=== PATIENT | male | born 1955 | race Caucasian/White ===

== ENCOUNTER 2018-07-17 09:35 | Inpatient (IN) | payer OTHER ==
--- NOTE | 2018-07-17 11:44 | HP ---
Admission [facility] Chief Complaint: REHAB FOR ALCOHOL ADDICTION Allergies/Adverse Reactions: Allergies Allergy/AdvReac Type Severity Reaction Status Date / Time No Known Allergies Allergy Verified 07/17/18 10:42 History of Present Illness: 62 Y/O MALE WITH A HX OF ALCOHOL DEPENDENCE SEEKING DETOX TX. PT REPORTS HE WAS AT [facility] FOR 10 DAYS DUE TO COLITIS FROM TO 07/17/18(SEE COPY OF DISCHARGE PAPERS PLACED IN PT'S CHART). PT HAS A HX OF COLITIS, EMPHYSEMA AND CHRONIC PANCREATITIS WITH PANCREATIC DUCTAL STENT(NO BILIARY STENT-PER RECORD). PT REPORTS HE HAS A PRIMARY CARE DOCTOR: DR DORENE Kaufman [address] [address] PT HAS A FOLLOW UP APPOINTMENT POST HOSPITALIZATION WITH THIS PMD ON BUT STATES HE CAN ALWAYS RESCHEDULE IT AFTER REHAB. Exam Limitations: No Limitations - Ebola screening Have you traveled outside of the country in the last 21 days: No Have you had contact with anyone from an Ebola affected area: No Have you been sick,other than usual withdrawal symptoms: No Do you have a fever: No - Review of Systems Constitutional: Chills, Loss of Appetite, Night Sweats, Unintentional Wgt. Loss EENT: reports: Blurred Vision, Tearing, Nose Congestion, Dental Problems ( MISSING TEETH--"I LOST MY DENTURES".) Respiratory: reports: Shortness of Breath (HX EMPHYSEMA), Wheezing Cardiac: reports: Lightheadedness, Syncope GI: reports: Diarrhea, Nausea, Poor Appetite, Poor Fluid Intake, Vomiting : reports: No Symptoms Reported Musculoskeletal: reports: No Symptoms Reported Integumentary: reports: No Symptoms Reported Neuro: reports: Tremors Endocrine: reports: No Symptoms Reported Hematology: reports: No Symptoms Reported Psychiatric: reports: Orientated x3, Anxious, Depressed Other Systems: Reviewed and Negative Patient History - Patient Medical History Hx Anemia: No Hx Asthma: No Hx Chronic Obstructive Pulmonary Disease (COPD): Yes (MDI) Hx Cancer: No Hx Cardiac Disorders: No Hx Congestive Heart Failure: No Hx Hypertension: Yes (ON AMLODIPINE 5 MG PO DAILY) Hx Hypercholesterolemia: No Hx Pacemaker: No HX Cerebrovascular Accident: No Hx Seizures: No Hx Dementia: No Hx Diabetes: Yes (BORDERLINE DM-NO CURRENT MED) Hx Gastrointestinal Disorders: Yes (HX COLITIS) Hx Liver Disease: Yes (liver scarring from hep c and alcohol) Hx Genitourinary Disorders: No Hx Sexually Transmitted Disorders: Yes (GONORHEA 30YRS AGO) Hx Renal Disease (ESRD): No Hx Thyroid Disease: No Hx Human Immunodeficiency Virus (HIV): No (NEAGTIVE HX ) Hx Hepatitis C: Yes (TREATED 2010-UNDETECTABLE) Hx Depression: Yes Hx Suicide Attempt: No (DENIES S/I) Hx Bipolar Disorder: No Hx Schizophrenia: No - Patient Surgical History Past Surgical History: Yes Hx Neurologic Surgery: No Hx Cataract Extraction: No Hx Cardiac Surgery: No Hx Lung Surgery: No Hx Breast Surgery: No Hx Breast Biopsy: No Hx Abdominal Surgery: No Hx Appendectomy: No Hx Cholecystectomy: No Hx Genitourinary Surgery: No Hx Section: No Hx Orthopedic Surgery: Yes (FX AND REPAIR OF RIGHT WRIST/FOREARM IN 2007) Other Surgical History: Varicose vein stripping in b/l legs Anesthesia Reaction: No - PPD History Previous Implant?: Yes Documented Results: Negative w/proof Implanted On Prior [facility] Admission?: Yes Date: 10/30/14 Results: 0MM PPD to be Administered?: Yes - Reproductive History Patient is a Female of Child Bearing Age (11 -55 yrs old): No (MALE) - Smoking Cessation Smoking history: Current every day smoker Have you smoked in the past 12 months: Yes Aproximately how many cigarettes per day: 4 Hx Chewing Tobacco Use: No Initiated information on smoking cessation: Yes 'Breaking Loose' booklet given: 07/17/18 - Substance & Tx. History Hx Alcohol Use: Yes (VODKA) Substance Use Type: Alcohol Hx Substance Use Treatment: Yes - Substances Abused Alcohol Route: Oral Frequency: Daily Amount used: vodka- 1 qrt / 4 24oz cans Age of first use: 12 Date of Last Use: 07/17/18 Family Disease History - Family Disease History Family History: Denies Admission Physical Exam BHS - Vital Signs Vital Signs: Vital Signs - 24 hr 07/17/18 10:09 Temperature 97.5 F L Pulse Rate 100 H Respiratory 18 Rate Blood Pressure 135/95 - Physical General Appearance: Yes: No Apparent Distress, Thin, Anxious HEENTM: Yes: EOMI, Normocephalic, JOHNNA, Pharynx Normal Respiratory: Yes: Chest Non-Tender, Lungs Clear, Normal Breath Sounds, No Respiratory Distress Neck: Yes: Supple, Trachea in good position Breast: Yes: Breast Exam Deferred Cardiology: Yes: Regular Rhythm, Regular Rate, S1, S2 Abdominal: Yes: Normal Bowel Sounds, Non Tender, Flat, Soft Genitourinary: Yes: Other (N/C) Back: Yes: Within Normal Limits Musculoskeletal: Yes: full range of Motion, Gait Steady Extremities: Yes: Normal Range of Motion, Non-Tender Neurological: Yes: grubber II-XII NML intact, Fully Oriented, Alert, Motor Strength 5/5 Integumentary: Yes: Dry, Warm, Other (VARICOSE VEINS BOTH LEGS--RIGHT > RIGHT) Lymphatic: Yes: Within Normal Limits - Diagnostic (1) Alcohol dependence with uncomplicated withdrawal Current Visit: Yes Status: Acute (2) Nicotine dependence Current Visit: Yes Status: Acute Qualifiers: Nicotine product type: cigarettes Substance use status: in withdrawal Qualified Code(s): F17.213 - Nicotine dependence, cigarettes, with withdrawal (3) Hepatitis C Current Visit: Yes Status: Resolved (4) Hx of coronary artery disease Current Visit: Yes Status: Chronic (5) Hx of chronic pancreatitis Current Visit: Yes Status: Chronic (6) History of COPD Current Visit: Yes Status: Chronic Cleared for Admission [facility] - Detox or Rehab Claeared for Rehab Admission: Yes [facility] Breath Alcohol Content Breath Alcohol Content: 0.051 Urine Drug Screen - Results Drug Screen Negative: No Urine Drug Screen Results: BZO-Benzodiazepines Inpatient Rehab Admission - Initial Determination Are CD services needed?: Yes Free of communicable disease: Yes Not in need of hospitalization: Yes - Rehab Admission Criteria Patient is meeting Inpatient Rehab admission criteria:: Yes
[2018-07-17] MEDS ORDERED: MAGNESIUM HYDROX 2400MG/30ML ORAL SUSPENSION 30 ML CUP PO PRN (13:26)
[2018-07-17] MEDS ORDERED: MAGNESIUM CITRATE 300 ML BOTTLE PO PRN (13:26)
[2018-07-17] MEDS ORDERED: hydrOXYzine PAMOATE 25 MG CAPSULE (FP) PO PRN (13:26)
[2018-07-17] MEDS ORDERED: MENTHOL/PHENOL 1 EACH UD MM PRN (13:26)
[2018-07-17] MEDS ORDERED: P-EPHED 60MG/TRIPROLIDI 2.5MG TABLET PO PRN (13:26)
[2018-07-17] MEDS ORDERED: ACETAMINOPHEN 325 MG TABLET (FP) PO PRN (13:26)
[2018-07-17] MEDS ORDERED: LOPERAMIDE HCL 2 MG CAPSULE PO PRN (13:26)
[2018-07-17] MEDS ORDERED: IBUPROFEN 400 MG TABLET (FP) PO PRN (13:26)
[2018-07-17] MEDS ORDERED: guaiFENesin/D-METHORPHAN HB 10 ML UNIT-DOSE CUPS PO PRN (13:26)
[2018-07-17] MEDS ORDERED: MAG HYDROX/AL HYDROX/SIMETH 30 ML UNIT-DOSE CUP PO PRN (13:26)
[2018-07-17] MEDS ORDERED: ALBUTEROL SO4 8 GM HFA INHALER IH PRN (13:28)
[2018-07-17 14:46] LABS: HEMATOCRIT 36.7 % (35.4-49); HEMOGLOBIN 12.2 GM/dL (11.7-16.9); MCH 33.3 pg (25.7-33.7); MCHC 33.2 g/dl (32.0-35.9); MEAN CELL VOLUME 100.2 fl (80-96); MEAN PLT VOLUME 7.6 fl (7.5-11.1); PLATELET COUNT 516 K/MM3 (134-434); RBC 3.67 M/mm3 (4.00-5.60); RDW 14.1 % (11.9-15.9); WHITE BLOOD COUNT 6.3 K/mm3 (4.0-10.0)
[2018-07-17 14:56] LABS: ALBUMIN 3.9 g/dl (3.4-5.0); ALK PHOS 103 U/L (45-117); ANION GAP 5 MMOL/L (8-16); BLOOD UREA NITROGEN 14 mg/dL (7-18); CALCIUM 9.3 mg/dL (8.5-10.1); CHLORIDE 102 mmol/L (98-107); CO2 29 mmol/L (21-32); GLUCOSE,RANDOM 149 mg/dL (74-106); POTASSIUM 4.6 mmol/L (3.5-5.1); SGOT/AST 23 U/L (15-37); SGPT/ALT 43 U/L (12-78); SODIUM 136 mmol/L (136-145)
[2018-07-17 14:57] LABS: BILIRUBIN,TOTAL 0.2 mg/dL (0.2-1.0)
[2018-07-17] MEDS: amLODIPine BESYLATE 5 MG TABLET (FP) PO SCH (15:16)
--- NOTE | 2018-07-17 16:10 | PN ---
[facility] Progress Note Note: Vital Signs Temperature 97.5 F L 07/17/18 10:09 Pulse Rate 100 H 07/17/18 10:09 Respiratory Rate 18 07/17/18 10:09 Blood Pressure 135/95 07/17/18 10:09 O2 Sat by Pulse Oximetry (%) Laboratory Last Values WBC 6.3 K/mm3 (4.0-10.0) 07/17/18 13:10 RBC 3.67 M/mm3 (4.00-5.60) L 07/17/18 13:10 Hgb 12.2 GM/dL (11.7-16.9) 07/17/18 13:10 Hct 36.7 % (35.4-49) 07/17/18 13:10 MCV 100.2 fl (80-96) H 07/17/18 13:10 MCH 33.3 pg (25.7-33.7) 07/17/18 13:10 MCHC 33.2 g/dl (32.0-35.9) 07/17/18 13:10 RDW 14.1 % (11.9-15.9) 07/17/18 13:10 Plt Count 516 K/MM3 (134-434) H D 07/17/18 13:10 MPV 7.6 fl (7.5-11.1) D 07/17/18 13:10 Sodium 136 mmol/L (136-145) 07/17/18 13:10 Potassium 4.6 mmol/L (3.5-5.1) 07/17/18 13:10 Chloride 102 mmol/L (98-107) 07/17/18 13:10 Carbon Dioxide 29 mmol/L (21-32) 07/17/18 13:10 Anion Gap 5 MMOL/L (8-16) L 07/17/18 13:10 BUN 14 mg/dL (7-18) 07/17/18 13:10 Creatinine 1.0 mg/dL (0.7-1.3) 07/17/18 13:10 Creat Clearance w eGFR > 60 (>60) 07/17/18 13:10 POC Glucometer 165 UNITS (80-120) 07/17/18 11:37 Random Glucose 149 mg/dL (74-106) H 07/17/18 13:10 Calcium 9.3 mg/dL (8.5-10.1) 07/17/18 13:10 Total Bilirubin 0.2 mg/dL (0.2-1.0) 07/17/18 13:10 AST 23 U/L (15-37) D 07/17/18 13:10 ALT 43 U/L (12-78) D 07/17/18 13:10 Alkaline Phosphatase 103 U/L (45-117) 07/17/18 13:10 Total Protein 8.0 g/dl (6.4-8.2) 07/17/18 13:10 Albumin 3.9 g/dl (3.4-5.0) 07/17/18 13:10 Patient currently stable. repeat CBC in AM
[2018-07-17] MEDS: LIPASE/PROTEASE/AMYLASE 6,000 UNIT CAPSULE PO SCH (16:47)
[2018-07-17] MEDS: RIVAROXABAN 20 MG TABLET PO SCH (17:01)
[2018-07-17 17:43] LABS: URINE APPEARANCE CLEAR; URINE BILIRUBIN NEGATIVE (<2.0 mg/dL); URINE COLOR STRAW; URINE GLUCOSE (UA) NEGATIVE (NEGATIVE); URINE KETONE NEGATIVE (NEGATIVE); URINE LEUK ESTERASE NEGATIVE (NEGATIVE); URINE NITRITE NEGATIVE (NEGATIVE); URINE PROTEIN NEGATIVE (NEGATIVE); URINE UROBILINOGEN NEGATIVE mg/dL (0.2-1.0)
[2018-07-17] MEDS: THIAMINE HCL 100 MG TABLET (FP) PO SCH (21:34)
[2018-07-17] MEDS: MELATONIN 5 MG TABLETS PO PRN (21:34)
[2018-07-18] MEDS: LIPASE/PROTEASE/AMYLASE 6,000 UNIT CAPSULE PO SCH ×3 (07:41→17:25)
[2018-07-18] MEDS: PRENATAL VITAMINS W/ FOLIC ACID TABLET (FP) PO SCH (09:29)
[2018-07-18] MEDS: amLODIPine BESYLATE 5 MG TABLET (FP) PO SCH (09:29)
[2018-07-18 10:23] LABS: BASO % 2.4 % (0-2.0); EOS % 1.4 % (0-4.5); HEMATOCRIT 36.2 % (35.4-49); HEMOGLOBIN 11.9 GM/dL (11.7-16.9); LYMPH % 38.3 % (8-40); MCH 33.4 pg (25.7-33.7); MCHC 32.8 g/dl (32.0-35.9); MEAN CELL VOLUME 101.7 fl (80-96); MEAN PLT VOLUME 7.4 fl (7.5-11.1); MONO % 16.7 % (3.8-10.2); NEUT % 41.2 % (42.8-82.8); PLATELET COUNT 477 K/MM3 (134-434); RBC 3.56 M/mm3 (4.00-5.60); RDW 14.2 % (11.9-15.9); WHITE BLOOD COUNT 7.1 K/mm3 (4.0-10.0)
[2018-07-18] MEDS ORDERED: PT OWN MED DRAWER 7, Y5N ONE ×3 (12:09→16:25)
[2018-07-18 13:42] LABS: ANISOCYTOSIS 1+; MACROCYTOSIS 1+; PLATELET ESTIMATE NORMAL
[2018-07-18] MEDS: RIVAROXABAN 20 MG TABLET PO SCH (17:24)
[2018-07-18] MEDS: THIAMINE HCL 100 MG TABLET (FP) PO SCH (21:02)
[2018-07-18] MEDS: MELATONIN 5 MG TABLETS PO PRN (21:02)
[2018-07-19] MEDS: LIPASE/PROTEASE/AMYLASE 6,000 UNIT CAPSULE PO SCH ×3 (07:19→17:31)
--- NOTE | 2018-07-19 09:21 | HP ---
Psychiatrist Admission - Data Date of interview: 07/19/18 Admission source: [facility] Identifying data: Patient is a 62 year old male, , father of one, unemployed, homeless, supported by a monthly pension check and food stamps. This is patient's second admission to rehab at [facility]. Pt. admitted 3W for alcohol dependence. Medical History: hypertension, diabetes, liver scarring from hep c and alcohol, Varicose vein stripping in b/l legs, COPD, FX AND REPAIR OF RIGHT WRIST/FOREARM IN 2007 Psychiatric History: Patient denies h/o psychiatric hospitalization and suicide attempt. Patient's first psychiatric contact was in 2008 for depression after receiving chemotherapy. He was tried on seroquel, buspar, lexapro, trazodone, ambien, and mirtzapine. Pt. d/c medications after chemotherapy was discontinued and has not taken psychtrophic medications since. Pt reports anxiety,depression , and insomnia due to his situation (pt is homeless and does not receive enough financial support). Pt. became homeless after his 10 years ago. Pt. denies h/o auditory and hallucinations. As per chart patient was treated effectively with doxepin 50mg qhs + Seroquel 25 daily + seroquel 100mg qhs during his previous admission in rehab in 2014 but reports not accepting psychotrophic medications following discharge. Pt. denies suicidal and homicidal ideation. Physical/Sexual Abuse/Trauma History: denies. Vital Signs: Vital Signs - 24 hr 07/19/18 07/19/18 07/19/18 00:30 03:30 06:50 Temperature 98.2 F Pulse Rate 103 H Respiratory 18 18 18 Rate Blood Pressure 138/86 Allergies/Adverse Reactions: Allergies Allergy/AdvReac Type Severity Reaction Status Date / Time No Known Allergies Allergy Verified 07/17/18 10:42 Date of last physical exam: 07/17/18 Concur with the findings of this exam: Yes - Substance Abuse/Tx History Hx Alcohol Use: Yes Hx Substance Use: No Substance Use Type: Alcohol Hx Substance Use Treatment: Yes (Rehab at [facility] in 2014) Mental Status Exam - Mental Status Exam Alert and Oriented to: Time, Place, Person Cognitive Function: Good Patient Appearance: Well Groomed Mood: Sad, Euthymic Affect: Mood Congruent Patient Behavior: Appropriate, Cooperative Speech Pattern: Clear, Appropriate Voice Loudness: Normal Thought Process: Intact, Goal Oriented Thought Disorder: Not Present Hallucinations: Denies Suicidal Ideation: Denies Homicidal Ideation: Denies Insight/Judgement: Poor Sleep: Poorly Appetite: Fair Muscle strength/Tone: Normal Gait/Station: Normal Psychiatric Findings - Problem List ([place] 1, 2,3) (1) Alcohol-induced mood disorder Current Visit: Yes Status: Acute (2) Alcohol dependence Current Visit: Yes Status: Chronic (3) Insomnia Current Visit: Yes Status: Acute - Initial Treatment Plan Initial Treatment Plan: Psychoeducation provided. Rehab in progress. Will start patient on doxepin 25mg qhs. Benefits and side effects discussed. Verbal consent given. Will continue to monitor.
[2018-07-19] MEDS: PRENATAL VITAMINS W/ FOLIC ACID TABLET (FP) PO SCH (09:40)
[2018-07-19] MEDS: amLODIPine BESYLATE 5 MG TABLET (FP) PO SCH (09:40)
[2018-07-19] MEDS ORDERED: PT OWN MED DRAWER 7, Y5N ONE ×2 (11:43→16:26)
[2018-07-19] MEDS: RIVAROXABAN 20 MG TABLET PO SCH (17:31)
[2018-07-19] MEDS: MELATONIN 5 MG TABLETS PO PRN (21:16)
[2018-07-19] MEDS: THIAMINE HCL 100 MG TABLET (FP) PO SCH (21:16)
[2018-07-19] MEDS: DOXEPIN HCL 25 MG CAPSULE PO SCH (21:16)
[2018-07-20] MEDS: LIPASE/PROTEASE/AMYLASE 6,000 UNIT CAPSULE PO SCH ×3 (07:07→16:56)
[2018-07-20] MEDS: PRENATAL VITAMINS W/ FOLIC ACID TABLET (FP) PO SCH (09:28)
[2018-07-20] MEDS: amLODIPine BESYLATE 5 MG TABLET (FP) PO SCH (09:28)
[2018-07-20] MEDS: RIVAROXABAN 20 MG TABLET PO SCH (17:01)
[2018-07-20] MEDS ORDERED: PT OWN MED DRAWER 7, Y5N ONE (19:29)
[2018-07-20] MEDS: DOXEPIN HCL 25 MG CAPSULE PO SCH (21:27)
[2018-07-20] MEDS: THIAMINE HCL 100 MG TABLET (FP) PO SCH (21:27)
[2018-07-21] MEDS: LIPASE/PROTEASE/AMYLASE 6,000 UNIT CAPSULE PO SCH ×3 (07:06→16:59)
[2018-07-21] MEDS: PRENATAL VITAMINS W/ FOLIC ACID TABLET (FP) PO SCH (09:43)
[2018-07-21] MEDS: amLODIPine BESYLATE 5 MG TABLET (FP) PO SCH (09:43)
[2018-07-21] MEDS: RIVAROXABAN 20 MG TABLET PO SCH (17:57)
[2018-07-21] MEDS: DOXEPIN HCL 25 MG CAPSULE PO SCH (21:17)
[2018-07-21] MEDS: THIAMINE HCL 100 MG TABLET (FP) PO SCH (21:17)
[2018-07-22] MEDS: LIPASE/PROTEASE/AMYLASE 6,000 UNIT CAPSULE PO SCH ×3 (07:14→16:53)
[2018-07-22] MEDS: PRENATAL VITAMINS W/ FOLIC ACID TABLET (FP) PO SCH (09:35)
[2018-07-22] MEDS: amLODIPine BESYLATE 5 MG TABLET (FP) PO SCH (09:35)
[2018-07-22] MEDS ORDERED: PT OWN MED DRAWER 7, Y5N ONE ×2 (16:24→19:13)
[2018-07-22] MEDS: RIVAROXABAN 20 MG TABLET PO SCH (17:10)
[2018-07-22] MEDS: DOXEPIN HCL 25 MG CAPSULE PO SCH (21:18)
[2018-07-22] MEDS: MELATONIN 5 MG TABLETS PO PRN (21:18)
[2018-07-22] MEDS: THIAMINE HCL 100 MG TABLET (FP) PO SCH (21:18)
[2018-07-23] MEDS ORDERED: PT OWN MED DRAWER 7, Y5N ONE (06:10)
[2018-07-23] MEDS: LIPASE/PROTEASE/AMYLASE 6,000 UNIT CAPSULE PO SCH ×3 (07:59→17:00)
[2018-07-23] MEDS: amLODIPine BESYLATE 5 MG TABLET (FP) PO SCH (09:41)
[2018-07-23] MEDS: PRENATAL VITAMINS W/ FOLIC ACID TABLET (FP) PO SCH (09:41)
[2018-07-23] MEDS: RIVAROXABAN 20 MG TABLET PO SCH (17:00)
[2018-07-23] MEDS: DOXEPIN HCL 25 MG CAPSULE PO SCH (21:26)
[2018-07-23] MEDS: THIAMINE HCL 100 MG TABLET (FP) PO SCH (21:26)
[2018-07-23] MEDS: MELATONIN 5 MG TABLETS PO PRN (21:26)
[2018-07-24] MEDS: LIPASE/PROTEASE/AMYLASE 6,000 UNIT CAPSULE PO SCH ×3 (07:22→17:33)
[2018-07-24] MEDS: PRENATAL VITAMINS W/ FOLIC ACID TABLET (FP) PO SCH (09:31)
[2018-07-24] MEDS: amLODIPine BESYLATE 5 MG TABLET (FP) PO SCH (09:31)
[2018-07-24] MEDS: NICOTINE 21 MG/24 HOURS TOPICAL PATCH TD SCH (09:32)
[2018-07-24] MEDS: RIVAROXABAN 20 MG TABLET PO SCH (17:33)
[2018-07-24] MEDS ORDERED: PT OWN MED DRAWER 7, Y5N ONE (20:21)
[2018-07-24] MEDS: MELATONIN 5 MG TABLETS PO PRN (21:12)
[2018-07-24] MEDS: DOXEPIN HCL 25 MG CAPSULE PO SCH (21:12)
[2018-07-24] MEDS: THIAMINE HCL 100 MG TABLET (FP) PO SCH (21:12)
[2018-07-25] MEDS: LIPASE/PROTEASE/AMYLASE 6,000 UNIT CAPSULE PO SCH ×3 (07:23→16:44)
[2018-07-25] MEDS: PRENATAL VITAMINS W/ FOLIC ACID TABLET (FP) PO SCH (09:34)
[2018-07-25] MEDS: NICOTINE 21 MG/24 HOURS TOPICAL PATCH TD SCH (09:34)
[2018-07-25] MEDS: amLODIPine BESYLATE 5 MG TABLET (FP) PO SCH (09:34)
[2018-07-25] MEDS: RIVAROXABAN 20 MG TABLET PO SCH (18:00)
[2018-07-25] MEDS: THIAMINE HCL 100 MG TABLET (FP) PO SCH (21:34)
[2018-07-25] MEDS: DOXEPIN HCL 25 MG CAPSULE PO SCH (21:34)
[2018-07-25] MEDS: MELATONIN 5 MG TABLETS PO PRN (21:34)
[2018-07-26] MEDS: LIPASE/PROTEASE/AMYLASE 6,000 UNIT CAPSULE PO SCH ×3 (07:09→16:52)
[2018-07-26] MEDS: PRENATAL VITAMINS W/ FOLIC ACID TABLET (FP) PO SCH (09:51)
[2018-07-26] MEDS: amLODIPine BESYLATE 5 MG TABLET (FP) PO SCH (09:51)
[2018-07-26] MEDS: NICOTINE 21 MG/24 HOURS TOPICAL PATCH TD SCH (09:52)
[2018-07-26] MEDS ORDERED: PT OWN MED DRAWER 7, Y5N ONE (10:41)
[2018-07-26] MEDS: RIVAROXABAN 20 MG TABLET PO SCH (17:05)
[2018-07-26] MEDS: DOXEPIN HCL 25 MG CAPSULE PO SCH (21:46)
[2018-07-26] MEDS: THIAMINE HCL 100 MG TABLET (FP) PO SCH (21:46)
[2018-07-26] MEDS: MELATONIN 5 MG TABLETS PO PRN (21:46)
[2018-07-27] MEDS: LIPASE/PROTEASE/AMYLASE 6,000 UNIT CAPSULE PO SCH ×3 (07:04→16:53)
[2018-07-27] MEDS: PRENATAL VITAMINS W/ FOLIC ACID TABLET (FP) PO SCH (09:34)
[2018-07-27] MEDS: NICOTINE 21 MG/24 HOURS TOPICAL PATCH TD SCH (09:34)
[2018-07-27] MEDS: amLODIPine BESYLATE 5 MG TABLET (FP) PO SCH (09:34)
[2018-07-27] MEDS: RIVAROXABAN 20 MG TABLET PO SCH (17:08)
[2018-07-27] MEDS: DOXEPIN HCL 25 MG CAPSULE PO SCH (21:11)
[2018-07-27] MEDS: THIAMINE HCL 100 MG TABLET (FP) PO SCH (21:11)
[2018-07-27] MEDS: MELATONIN 5 MG TABLETS PO PRN (21:11)
[2018-07-28] MEDS: LIPASE/PROTEASE/AMYLASE 6,000 UNIT CAPSULE PO SCH ×3 (07:10→17:05)
[2018-07-28] MEDS: amLODIPine BESYLATE 5 MG TABLET (FP) PO SCH (09:27)
[2018-07-28] MEDS: PRENATAL VITAMINS W/ FOLIC ACID TABLET (FP) PO SCH (09:27)
[2018-07-28] MEDS: NICOTINE 21 MG/24 HOURS TOPICAL PATCH TD SCH (09:27)
[2018-07-28] MEDS: RIVAROXABAN 20 MG TABLET PO SCH (17:05)
[2018-07-28] MEDS: DOXEPIN HCL 25 MG CAPSULE PO SCH (21:05)
[2018-07-28] MEDS: THIAMINE HCL 100 MG TABLET (FP) PO SCH (21:05)
[2018-07-28] MEDS: MELATONIN 5 MG TABLETS PO PRN (21:05)
[2018-07-29] MEDS: LIPASE/PROTEASE/AMYLASE 6,000 UNIT CAPSULE PO SCH ×3 (07:08→16:56)
[2018-07-29] MEDS: amLODIPine BESYLATE 5 MG TABLET (FP) PO SCH (09:44)
[2018-07-29] MEDS: NICOTINE 21 MG/24 HOURS TOPICAL PATCH TD SCH (09:44)
[2018-07-29] MEDS: PRENATAL VITAMINS W/ FOLIC ACID TABLET (FP) PO SCH (09:44)
[2018-07-29] MEDS: RIVAROXABAN 20 MG TABLET PO SCH (17:56)
[2018-07-29] MEDS: DOXEPIN HCL 25 MG CAPSULE PO SCH (21:44)
[2018-07-29] MEDS: THIAMINE HCL 100 MG TABLET (FP) PO SCH (21:44)
[2018-07-29] MEDS: MELATONIN 5 MG TABLETS PO PRN (21:44)
[2018-07-30] MEDS: LIPASE/PROTEASE/AMYLASE 6,000 UNIT CAPSULE PO SCH ×3 (07:11→16:55)
[2018-07-30] MEDS: NICOTINE 21 MG/24 HOURS TOPICAL PATCH TD SCH (09:43)
[2018-07-30] MEDS: amLODIPine BESYLATE 5 MG TABLET (FP) PO SCH (09:43)
[2018-07-30] MEDS: PRENATAL VITAMINS W/ FOLIC ACID TABLET (FP) PO SCH (09:43)
[2018-07-30] MEDS: RIVAROXABAN 20 MG TABLET PO SCH (17:00)
[2018-07-30] MEDS: DOXEPIN HCL 25 MG CAPSULE PO SCH (21:24)
[2018-07-30] MEDS: MELATONIN 5 MG TABLETS PO PRN (21:24)
[2018-07-30] MEDS: THIAMINE HCL 100 MG TABLET (FP) PO SCH (21:25)
[2018-07-31] MEDS: LIPASE/PROTEASE/AMYLASE 6,000 UNIT CAPSULE PO SCH ×3 (07:07→16:58)
[2018-07-31] MEDS: PRENATAL VITAMINS W/ FOLIC ACID TABLET (FP) PO SCH (09:45)
[2018-07-31] MEDS: amLODIPine BESYLATE 5 MG TABLET (FP) PO SCH (09:45)
[2018-07-31] MEDS: NICOTINE 21 MG/24 HOURS TOPICAL PATCH TD SCH (09:46)
[2018-07-31] MEDS: RIVAROXABAN 20 MG TABLET PO SCH (17:54)
[2018-07-31] MEDS: DOXEPIN HCL 25 MG CAPSULE PO SCH (22:03)
[2018-07-31] MEDS: MELATONIN 5 MG TABLETS PO PRN (22:03)
[2018-07-31] MEDS: THIAMINE HCL 100 MG TABLET (FP) PO SCH (22:03)
[2018-08-01] MEDS: LIPASE/PROTEASE/AMYLASE 6,000 UNIT CAPSULE PO SCH ×3 (07:04→16:53)
[2018-08-01] MEDS: amLODIPine BESYLATE 5 MG TABLET (FP) PO SCH (09:51)
[2018-08-01] MEDS: NICOTINE 21 MG/24 HOURS TOPICAL PATCH TD SCH (09:51)
[2018-08-01] MEDS: PRENATAL VITAMINS W/ FOLIC ACID TABLET (FP) PO SCH (09:51)
[2018-08-01] MEDS ORDERED: PT OWN MED DRAWER 7, Y5N ONE (17:18)
[2018-08-01] MEDS: RIVAROXABAN 20 MG TABLET PO SCH (17:19)
[2018-08-01] MEDS: MELATONIN 5 MG TABLETS PO PRN (21:26)
[2018-08-01] MEDS: THIAMINE HCL 100 MG TABLET (FP) PO SCH (21:26)
[2018-08-01] MEDS: DOXEPIN HCL 25 MG CAPSULE PO SCH (21:26)
[2018-08-02] MEDS: LIPASE/PROTEASE/AMYLASE 6,000 UNIT CAPSULE PO SCH ×3 (07:11→17:10)
[2018-08-02] MEDS: NICOTINE 21 MG/24 HOURS TOPICAL PATCH TD SCH (09:45)
[2018-08-02] MEDS: amLODIPine BESYLATE 5 MG TABLET (FP) PO SCH (09:45)
[2018-08-02] MEDS: PRENATAL VITAMINS W/ FOLIC ACID TABLET (FP) PO SCH (09:45)
[2018-08-02] MEDS: RIVAROXABAN 20 MG TABLET PO SCH (17:10)
[2018-08-02] MEDS: MELATONIN 5 MG TABLETS PO PRN (21:33)
[2018-08-02] MEDS: DOXEPIN HCL 25 MG CAPSULE PO SCH (21:33)
[2018-08-02] MEDS: THIAMINE HCL 100 MG TABLET (FP) PO SCH (21:33)
[2018-08-03] MEDS: LIPASE/PROTEASE/AMYLASE 6,000 UNIT CAPSULE PO SCH ×3 (07:30→16:57)
[2018-08-03] MEDS: amLODIPine BESYLATE 5 MG TABLET (FP) PO SCH (09:44)
[2018-08-03] MEDS: PRENATAL VITAMINS W/ FOLIC ACID TABLET (FP) PO SCH (09:44)
[2018-08-03] MEDS: NICOTINE 21 MG/24 HOURS TOPICAL PATCH TD SCH (09:45)
[2018-08-03] MEDS: RIVAROXABAN 20 MG TABLET PO SCH (18:00)
[2018-08-03] MEDS: THIAMINE HCL 100 MG TABLET (FP) PO SCH (21:13)
[2018-08-03] MEDS: DOXEPIN HCL 25 MG CAPSULE PO SCH (21:13)
[2018-08-03] MEDS: MELATONIN 5 MG TABLETS PO PRN (21:13)
[2018-08-04] MEDS: LIPASE/PROTEASE/AMYLASE 6,000 UNIT CAPSULE PO SCH ×3 (07:12→16:59)
[2018-08-04] MEDS: amLODIPine BESYLATE 5 MG TABLET (FP) PO SCH (09:31)
[2018-08-04] MEDS: PRENATAL VITAMINS W/ FOLIC ACID TABLET (FP) PO SCH (09:31)
[2018-08-04] MEDS: NICOTINE 21 MG/24 HOURS TOPICAL PATCH TD SCH (09:32)
[2018-08-04] MEDS: RIVAROXABAN 20 MG TABLET PO SCH (17:51)
[2018-08-04] MEDS: MELATONIN 5 MG TABLETS PO PRN (21:19)
[2018-08-04] MEDS: DOXEPIN HCL 25 MG CAPSULE PO SCH (21:19)
[2018-08-04] MEDS: THIAMINE HCL 100 MG TABLET (FP) PO SCH (21:19)
[2018-08-05] MEDS: LIPASE/PROTEASE/AMYLASE 6,000 UNIT CAPSULE PO SCH ×3 (07:12→16:55)
[2018-08-05] MEDS: PRENATAL VITAMINS W/ FOLIC ACID TABLET (FP) PO SCH (09:33)
[2018-08-05] MEDS: amLODIPine BESYLATE 5 MG TABLET (FP) PO SCH (09:33)
[2018-08-05] MEDS: NICOTINE 21 MG/24 HOURS TOPICAL PATCH TD SCH (09:34)
[2018-08-05] MEDS: RIVAROXABAN 20 MG TABLET PO SCH (17:02)
[2018-08-05] MEDS: DOXEPIN HCL 25 MG CAPSULE PO SCH (21:34)
[2018-08-05] MEDS: MELATONIN 5 MG TABLETS PO PRN (21:34)
[2018-08-05] MEDS: THIAMINE HCL 100 MG TABLET (FP) PO SCH (21:34)
[2018-08-06] MEDS: LIPASE/PROTEASE/AMYLASE 6,000 UNIT CAPSULE PO SCH ×3 (07:08→16:57)
[2018-08-06] MEDS: PRENATAL VITAMINS W/ FOLIC ACID TABLET (FP) PO SCH (09:51)
[2018-08-06] MEDS: amLODIPine BESYLATE 5 MG TABLET (FP) PO SCH (09:51)
[2018-08-06] MEDS: NICOTINE 21 MG/24 HOURS TOPICAL PATCH TD SCH (09:51)
[2018-08-06] MEDS ORDERED: PT OWN MED DRAWER 7, Y5N ONE (16:36)
[2018-08-06] MEDS: RIVAROXABAN 20 MG TABLET PO SCH (17:04)
[2018-08-06] MEDS: DOXEPIN HCL 25 MG CAPSULE PO SCH (21:26)
[2018-08-06] MEDS: MELATONIN 5 MG TABLETS PO PRN (21:26)
[2018-08-06] MEDS: THIAMINE HCL 100 MG TABLET (FP) PO SCH (21:26)
[2018-08-07] MEDS: LIPASE/PROTEASE/AMYLASE 6,000 UNIT CAPSULE PO SCH ×3 (07:07→16:57)
[2018-08-07] MEDS: amLODIPine BESYLATE 5 MG TABLET (FP) PO SCH (09:35)
[2018-08-07] MEDS: PRENATAL VITAMINS W/ FOLIC ACID TABLET (FP) PO SCH (09:35)
[2018-08-07] MEDS: NICOTINE 21 MG/24 HOURS TOPICAL PATCH TD SCH (09:35)
[2018-08-07] MEDS ORDERED: PT OWN MED DRAWER 7, Y5N ONE (12:58)
[2018-08-07] MEDS: RIVAROXABAN 20 MG TABLET PO SCH (17:01)
[2018-08-07] MEDS: DOXEPIN HCL 25 MG CAPSULE PO SCH (21:29)
[2018-08-07] MEDS: THIAMINE HCL 100 MG TABLET (FP) PO SCH (21:29)
[2018-08-07] MEDS: MELATONIN 5 MG TABLETS PO PRN (21:29)
[2018-08-08] MEDS: LIPASE/PROTEASE/AMYLASE 6,000 UNIT CAPSULE PO SCH ×3 (07:10→17:53)
[2018-08-08] MEDS: PRENATAL VITAMINS W/ FOLIC ACID TABLET (FP) PO SCH (09:31)
[2018-08-08] MEDS: amLODIPine BESYLATE 5 MG TABLET (FP) PO SCH (09:31)
[2018-08-08] MEDS: NICOTINE 21 MG/24 HOURS TOPICAL PATCH TD SCH (09:31)
[2018-08-08] MEDS: RIVAROXABAN 20 MG TABLET PO SCH (17:15)
[2018-08-08] MEDS: MELATONIN 5 MG TABLETS PO PRN (21:26)
[2018-08-08] MEDS: DOXEPIN HCL 25 MG CAPSULE PO SCH (21:26)
[2018-08-08] MEDS: THIAMINE HCL 100 MG TABLET (FP) PO SCH (21:26)
[2018-08-09] MEDS: LIPASE/PROTEASE/AMYLASE 6,000 UNIT CAPSULE PO SCH ×3 (07:19→16:49)
[2018-08-09] MEDS: amLODIPine BESYLATE 5 MG TABLET (FP) PO SCH (09:33)
[2018-08-09] MEDS: PRENATAL VITAMINS W/ FOLIC ACID TABLET (FP) PO SCH (09:33)
[2018-08-09] MEDS: NICOTINE 21 MG/24 HOURS TOPICAL PATCH TD SCH (09:34)
[2018-08-09] MEDS: RIVAROXABAN 20 MG TABLET PO SCH (17:00)
[2018-08-09] MEDS: DOXEPIN HCL 25 MG CAPSULE PO SCH (21:47)
[2018-08-09] MEDS: THIAMINE HCL 100 MG TABLET (FP) PO SCH (21:47)
[2018-08-09] MEDS: MELATONIN 5 MG TABLETS PO PRN (21:47)
[2018-08-10] MEDS: LIPASE/PROTEASE/AMYLASE 6,000 UNIT CAPSULE PO SCH ×3 (07:18→17:05)
[2018-08-10] MEDS: amLODIPine BESYLATE 5 MG TABLET (FP) PO SCH (09:25)
[2018-08-10] MEDS: PRENATAL VITAMINS W/ FOLIC ACID TABLET (FP) PO SCH (09:25)
[2018-08-10] MEDS: NICOTINE 21 MG/24 HOURS TOPICAL PATCH TD SCH (09:26)
[2018-08-10] MEDS: RIVAROXABAN 20 MG TABLET PO SCH (17:05)
[2018-08-10] MEDS: DOXEPIN HCL 25 MG CAPSULE PO SCH (21:38)
[2018-08-10] MEDS: THIAMINE HCL 100 MG TABLET (FP) PO SCH (21:38)
[2018-08-10] MEDS: MELATONIN 5 MG TABLETS PO PRN (21:38)
[2018-08-11] MEDS: LIPASE/PROTEASE/AMYLASE 6,000 UNIT CAPSULE PO SCH ×3 (07:00→17:06)
[2018-08-11] MEDS: PRENATAL VITAMINS W/ FOLIC ACID TABLET (FP) PO SCH (09:27)
[2018-08-11] MEDS: amLODIPine BESYLATE 5 MG TABLET (FP) PO SCH (09:27)
[2018-08-11] MEDS: NICOTINE 21 MG/24 HOURS TOPICAL PATCH TD SCH (09:28)
[2018-08-11] MEDS: RIVAROXABAN 20 MG TABLET PO SCH (17:06)
[2018-08-11] MEDS: DOXEPIN HCL 25 MG CAPSULE PO SCH (21:34)
[2018-08-11] MEDS: MELATONIN 5 MG TABLETS PO PRN (21:34)
[2018-08-11] MEDS: THIAMINE HCL 100 MG TABLET (FP) PO SCH (21:34)
[2018-08-12] MEDS: LIPASE/PROTEASE/AMYLASE 6,000 UNIT CAPSULE PO SCH ×3 (07:18→16:56)
[2018-08-12] MEDS: PRENATAL VITAMINS W/ FOLIC ACID TABLET (FP) PO SCH (09:31)
[2018-08-12] MEDS: amLODIPine BESYLATE 5 MG TABLET (FP) PO SCH (09:31)
[2018-08-12] MEDS: NICOTINE 21 MG/24 HOURS TOPICAL PATCH TD SCH (09:31)
[2018-08-12] MEDS: RIVAROXABAN 20 MG TABLET PO SCH (17:05)
[2018-08-12] MEDS: THIAMINE HCL 100 MG TABLET (FP) PO SCH (21:28)
[2018-08-12] MEDS: MELATONIN 5 MG TABLETS PO PRN (21:28)
[2018-08-12] MEDS: DOXEPIN HCL 25 MG CAPSULE PO SCH (21:28)
[2018-08-13] MEDS: LIPASE/PROTEASE/AMYLASE 6,000 UNIT CAPSULE PO SCH ×3 (07:10→16:47)
[2018-08-13] MEDS: amLODIPine BESYLATE 5 MG TABLET (FP) PO SCH (09:31)
[2018-08-13] MEDS: NICOTINE 21 MG/24 HOURS TOPICAL PATCH TD SCH (09:31)
[2018-08-13] MEDS: PRENATAL VITAMINS W/ FOLIC ACID TABLET (FP) PO SCH (09:31)
[2018-08-13] MEDS: RIVAROXABAN 20 MG TABLET PO SCH (17:37)
[2018-08-13] MEDS: DOXEPIN HCL 25 MG CAPSULE PO SCH (21:40)
[2018-08-13] MEDS: MELATONIN 5 MG TABLETS PO PRN (21:40)
[2018-08-13] MEDS: THIAMINE HCL 100 MG TABLET (FP) PO SCH (21:40)
[2018-08-14 06:37] VITALS: TEMP 97.7
[2018-08-14] MEDS: LIPASE/PROTEASE/AMYLASE 6,000 UNIT CAPSULE PO SCH ×2 (07:09→11:47)
[2018-08-14] MEDS: NICOTINE 21 MG/24 HOURS TOPICAL PATCH TD SCH (09:34)
[2018-08-14] MEDS: amLODIPine BESYLATE 5 MG TABLET (FP) PO SCH (09:34)
[2018-08-14] MEDS: PRENATAL VITAMINS W/ FOLIC ACID TABLET (FP) PO SCH (09:35)
[2018-08-14 10:01] VITALS: BP 112/78; PULSE 101
--- NOTE | 2018-08-14 10:48 | PN ---
Psychiatric Progress Note Vital Signs: Vital Signs Period Temp Pulse Resp BP Sys/Velázquez Pulse Ox Last 24 Hr 97.7 F 101-105 18-20 112-118/77-78 Date of Session: 08/14/18 Chief Complaint:: Discharge Note HPI: Patient addressing Alcohol Dependence comorbid with Nicotine Dependence, Substance-Induced Mood Disorder and Substance-Induced Sleep Disorder ROS: HTN, DM, Hep C, COPD Current Medications: Active Medications Generic Name Dose Route Start Last Admin Trade Name Freq PRN Reason Stop Dose Admin Acetaminophen 650 mg 07/17/18 13:26 Tylenol - PO Q4H PRN FEVER Al Hydroxide/Mg Hydroxide 30 ml 07/17/18 13:26 Mylanta Oral Suspension - PO Q6H PRN DYSPEPSIA Albuterol Sulfate 2 puff 07/17/18 13:28 Ventolin Hfa Inhaler - IH Q4H PRN ASTHMA Amlodipine Besylate 5 mg 07/17/18 13:50 08/14/18 09:34 Norvasc - PO 5 mg DAILY JASON Administration Doxepin HCl 25 mg 07/19/18 22:00 08/13/18 21:40 Sinequan - PO 25 mg HS JASON Administration Eucalyptus/Menthol/Phenol/Sorbitol 1 each 07/17/18 13:26 Cepastat Lozenge - MM Q4H PRN SORE THROAT Guaifenesin 10 ml 07/17/18 13:26 Robitussin Dm - PO Q6H PRN COUGH Hydroxyzine Pamoate 25 mg 07/17/18 13:26 Vistaril - PO Q4H PRN AGITATION Loperamide HCl 4 mg 07/17/18 13:26 Imodium - PO Q6H PRN DIARRHEA Magnesium Citrate 300 ml 07/17/18 13:26 Citroma - PO Q48H PRN CONSTIPATION Magnesium Hydroxide 30 ml 07/17/18 13:26 Milk Of Magnesia - PO DAILY PRN CONSTIPATION Melatonin 5 mg 07/17/18 22:00 08/13/18 21:40 Melatonin PO 5 mg HS PRN Administration INSOMNIA Nicotine 21 mg 07/24/18 10:00 08/14/18 09:34 Nicoderm Patch - TD Not Given DAILY JASON Pancrelipase 4 cap 07/17/18 17:30 08/14/18 07:09 Crefortunato [place] 6,000 Units Capsule PO 4 cap TIDCM JASON Administration Multivit/Folic Acid/Iron 1 tab 07/18/18 10:00 08/14/18 09:35 Vitamins (Sjr) - PO 1 tab DAILY JASON Administration Pseudoephedrine/Triprolidine 1 combo 07/17/18 13:26 Actifed - PO TID PRN NASAL CONGESTION Rivaroxaban 20 mg 07/17/18 18:00 08/13/18 17:37 Xarelto - PO 20 mg DAILY@1800 JASON Administration Thiamine HCl 100 mg 07/17/18 22:00 08/13/18 21:40 Vitamin B1 - PO 100 mg HS JASON Administration Current Side Effect: No Lab tests ordered: Yes Lab tests reviewed: Yes Provider note:: Patient has completed this program today. 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 He responded well to Doxepin 25 mg po HS. Script for 30 days supply of medication is electronically transmitted to [facility] at [address] [place] [address]. He is stable for discharge today Total face to face time:: 35 Mental Status Exam - Mental Status Exam Alert and Oriented to: Time, Place, Person Cognitive Function: Fair Patient Appearance: Well Groomed Mood: Hopeful, Euthymic Affect: Appropriate Patient Behavior: Cooperative Speech Pattern: Clear Voice Loudness: Normal Thought Process: Intact, Goal Oriented Thought Disorder: Not Present Hallucinations: Denies Suicidal Ideation: Denies Homicidal Ideation: Denies Insight/Judgement: Fair Sleep: Fair Appetite: Good Muscle strength/Tone: Normal Gait/Station: Normal Psychiatric Treatment Plan - Problem List (1) Alcohol dependence Current Visit: Yes (2) Nicotine dependence Current Visit: Yes Qualifiers: Nicotine product type: cigarettes Substance use status: in withdrawal Qualified Code(s): F17.213 - Nicotine dependence, cigarettes, with withdrawal (3) Alcohol-induced mood disorder Current Visit: Yes (4) Alcohol-induced sleep disorder Current Visit: Yes (5) History of COPD Current Visit: Yes (6) Hepatitis C Current Visit: Yes Initial treatment plan: Patient is discharged today and referred to [facility] for termite inspector residential treatment
--- NOTE | 2018-08-14 14:03 | PN ---
[facility] Progress Note Note: [facility] RX WAS SENT TO [facility] BUT UNFORTUNATELY, PT WAS UNABLE TO FILL RX BECAUSE HE IS RESTRICTED TO HIS PHARMACY AND TO HIS PMD. PT HAS OWN PDD INDICATED ON ADMISSION DOCUMENT DR. JACOBO AT [facility](SEE H/P DOCUMENT ON ADMISSION). HE ALSO REPORTS HE HAS A G.I DOCTOR, DR. JOHNSON AT [place], [place]. PT WILL FOLLOW UP AFTER D/C FROM REHAB TODAY TO GET HIS RX.
== END 2018-08-14 12:25 | disposition home or self-care (01) | DRG 772 ==
LOC: YASAS 09:35 → Y3W 13:43
PROVIDERS: ADMIT Psychiatry & Neurology Psychiatry; ATTEND Psychiatry & Neurology Psychiatry
PROC: HZ42ZZZ Group Counseling for Substance Abuse Treatment, Cognitive-Behavioral (ICD-10-PCS; principal; 2018-07-17)
DX: F10.20 Alcohol dependence, uncomplicated (principal); F17.213 Nicotine dependence, cigarettes, with withdrawal; F10.24 Alcohol dependence with alcohol-induced mood disorder; F10.282 Alcohol dependence with alcohol-induced sleep disorder; I10 Essential (primary) hypertension; J44.9 Chronic obstructive pulmonary disease, unspecified; G47.00 Insomnia, unspecified; K85.20 Alcohol induced acute pancreatitis without necrosis or infection; E11.9 Type 2 diabetes mellitus without complications; B18.2 Chronic viral hepatitis C; Z86.79 Personal history of other diseases of the circulatory system; Z59.0 Homelessness
CPT/HCPCS: 36415; 80053; 81003; 82962; 85025; 85027; 86593

== ENCOUNTER 2024-07-31 23:10 | Inpatient (IN) | payer OTHER ==
[2024-07-31 23:42] VITALS: BMI 21.5
[2024-08-01] MEDS ORDERED: ACETAMINOPHEN 325 MG TABLET (FP) PO PRN (02:00)
[2024-08-01] MEDS ORDERED: NALOXONE (NARCAN) HCL 4 MG/0.1 ML SPRAY NS PRN (02:00)
[2024-08-01] MEDS ORDERED: IBUPROFEN 600 MG TABLET (FP) PO PRN (02:00)
[2024-08-01] MEDS ORDERED: BENZOCAINE/MENTHOL (CHLORASEPTIC ) LOZENGE MM PRN (02:00)
[2024-08-01] MEDS ORDERED: IBUPROFEN 400 MG TABLET (FP) PO PRN (02:00)
[2024-08-01] MEDS ORDERED: BENZONATATE 200 MG CAPSULE PO PRN (02:00)
[2024-08-01] MEDS ORDERED: NALOXONE HCL 0.4 MG/ML VIAL IM PRN (02:00)
[2024-08-01] MEDS ORDERED: MAG HYDROX/AL HYDROX/SIMETH 30 ML UNIT-DOSE CUP PO PRN (02:00)
[2024-08-01] MEDS ORDERED: guaiFENesin 600 MG TABLET.ER (FP) PO PRN (02:00)
[2024-08-01] MEDS ORDERED: LOPERAMIDE HCL 2 MG CAPSULE PO PRN (02:00)
[2024-08-01] MEDS ORDERED: MAGNESIUM HYDROX 2400MG/30ML ORAL SUSPENSION 30 ML CUP PO PRN (02:00)
[2024-08-01] MEDS ORDERED: NICOTINE POLACRILEX 2 MG GUM BUC PRN (02:00)
[2024-08-01] MEDS ORDERED: POLYETHYLENE GLYCOL (HEALTHYLAX) 3350 17 GM PACKET PO PRN (02:00)
[2024-08-01] MEDS: PRENATAL VITAMINS W/ FOLIC ACID TABLET (FP) PO SCH (09:42)
[2024-08-01] MEDS: NICOTINE 14 MG/24 HOURS TOPICAL PATCH TD SCH (09:43)
[2024-08-01] MEDS: TUBERCULIN PPD 5 TU/0.1ML SYRINGE (IN PATIENT USE ONLY) ID ONE (09:43)
[2024-08-01] MEDS: hydrOXYzine PAMOATE 25 MG CAPSULE (FP) PO PRN (13:24)
[2024-08-01] MEDS: CLOPIDOGREL BISULFATE 75 MG TABLET (FP) PO SCH (13:31)
[2024-08-01 16:10] LABS: URINE APPEARANCE CLEAR; URINE BILIRUBIN NEGATIVE (NEGATIVE); URINE COLOR YELLOW; URINE GLUCOSE (UA) NEGATIVE (NEGATIVE); URINE KETONE NEGATIVE (NEGATIVE); URINE LEUK ESTERASE NEGATIVE (NEGATIVE); URINE NITRITE NEGATIVE (NEGATIVE); URINE PROTEIN NEGATIVE (NEGATIVE); URINE UROBILINOGEN 0.2 mg/dL (0.2-1.0)
[2024-08-01] MEDS: LIPASE/PROTEASE/AMYLASE 24,000 UNIT CAPSULE PO SCH (16:31)
[2024-08-01] MEDS: metFORMIN HCL 500 MG TABLET (FP) PO SCH (16:31)
[2024-08-01] MEDS: MELATONIN 5 MG TABLETS PO SCH (21:34)
[2024-08-01] MEDS: THIAMINE 100 MG TABLET PO SCH (21:34)
[2024-08-01] MEDS: ATORVASTATIN CA 10 MG TABLET (FP) PO SCH (21:34)
[2024-08-01] MEDS: FAMOTIDINE 10 MG TABLET PO SCH (21:35)
[2024-08-02] MEDS: SERTRALINE HCL 50 MG TABLET (FP) PO SCH (10:16)
[2024-08-02] MEDS: FAMOTIDINE 20 MG TABLET PO SCH (21:32)
[2024-08-02] MEDS ORDERED: INSULIN ASPART SLIDING SCALE (NOVOLOG) 1 VIAL SQ ONE (21:56)
[2024-08-06] MEDS: FAMOTIDINE 10 MG TABLET PO SCH (10:25)
[2024-08-06 14:50] LABS: POTASSIUM 4.6 mmol/L (3.5-5.1)
[2024-08-06 14:55] LABS: ALBUMIN 3.1 g/dl (3.4-5.0); BLOOD UREA NITROGEN 12.6 mg/dL (7-18); CALCIUM 9.5 mg/dL (8.5-10.1)
[2024-08-06 14:59] LABS: CREATININE 0.9 mg/dL (0.55-1.3)
[2024-08-06 15:00] LABS: BILIRUBIN,TOTAL 0.2 mg/dL (0.2-1)
[2024-08-08] MEDS ORDERED: ALBUTEROL SO4 HFA INHALER IH PRN (12:25)
[2024-08-08] MEDS: LISINOPRIL 5 MG TABLET PO SCH (14:18)
[2024-08-12 06:49] VITALS: BP 128/80; PULSE 71; RESP 716; TEMP 97.3
== END 2024-08-12 09:10 | disposition home or self-care (01) | DRG 895 ==
LOC: YASAS 23:10 → Y3NR 08-01 02:24 → Y3W 08-01 14:12
PROVIDERS: ADMIT Allergy & Immunology; ATTEND Psychiatry & Neurology Pain Medicine
PROC: HZ42ZZZ Group Counseling for Substance Abuse Treatment, Cognitive-Behavioral (ICD-10-PCS; principal; 2024-08-01)
DX: F10.20 Alcohol dependence, uncomplicated (principal); K86.1 Other chronic pancreatitis; Z59.00 Homelessness unspecified; F17.210 Nicotine dependence, cigarettes, uncomplicated; F32.A Depression, unspecified; F41.9 Anxiety disorder, unspecified; E87.5 Hyperkalemia; E11.9 Type 2 diabetes mellitus without complications; Z79.84 Long term (current) use of oral hypoglycemic drugs; I10 Essential (primary) hypertension; J43.9 Emphysema, unspecified; K74.60 Unspecified cirrhosis of liver; R79.89 Other specified abnormal findings of blood chemistry; Z87.19 Personal history of other diseases of the digestive system; Z86.73 Personal history of transient ischemic attack (TIA), and cerebral infarction without residual deficits; Z86.19 Personal history of other infectious and parasitic diseases
CPT/HCPCS: 36415; 80053; 80305; 80307; 81003; 82962; 86780; 87811; 93005; 93010